=== PATIENT | male | born 1985 | race Caucasian/White ===

== ENCOUNTER 2025-04-29 20:50 | Emergency (ER) | payer OTHER ==
[2025-04-29 21:08] VITALS: RESP 18; TEMP 98.1
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
[2025-04-29] MEDS: KETOROLAC 15 MG/ML 1 ML VIAL IM STA (21:42)
[2025-04-29] MEDS: HYDROmorphone 1 MG/ML 1 ML SYRINGE IM STA (21:43)
[2025-04-29] MEDS: ONDANSETRON ODT 4 MG TAB PO STA (23:18)
--- NOTE | 2025-04-29 23:42 | XR ---
EXAM: XR Lumbosacral Spine, 2 or 3 Views CLINICAL HISTORY: ITS.REASON XR Reason: pain TECHNIQUE: Frontal and lateral views of the lumbar spine and sacrum. COMPARISON: No relevant prior studies available. FINDINGS: Vertebrae: 30% L1 compression fracture, age-indeterminate. Vertebral body heights otherwise maintained. Vertebral body alignment is normal. Sacrum/coccyx: Unremarkable as visualized. No acute fracture. Disc spaces: No acute findings. No significant narrowing. Soft tissues: Unremarkable. IMPRESSION: 30% L1 compression fracture, age-indeterminate.
--- NOTE | 2025-04-29 23:43 | XR ---
EXAM: XR Pelvis, 1 or 2 Views CLINICAL HISTORY: ITS.REASON XR Reason: pain TECHNIQUE: Frontal view of the pelvis. COMPARISON: No relevant prior studies available. FINDINGS: Bones/joints: No acute fracture. No dislocation. Soft tissues: Unremarkable. IMPRESSION: No acute osseous findings.
[2025-04-30] MEDS: ACET/COD 300 MG/30 MG STARTER PACK 6 TAB BTL PO STA (00:06)
[2025-04-30 00:11] VITALS: BP 126/77; PULSE 62
== END 2025-04-30 00:11 | disposition home or self-care (01) ==
LOC: EC 20:50
DX: S32.010A Wedge compression fracture of first lumbar vertebra, initial encounter for closed fracture (principal); F17.290 Nicotine dependence, other tobacco product, uncomplicated; V86.95XA Unspecified occupant of 3- or 4- wheeled all-terrain vehicle (ATV) injured in nontraffic accident, initial encounter; Y92.009 Unspecified place in unspecified non-institutional (private) residence as the place of occurrence of the external cause
CPT/HCPCS: 72100; 72170; 99283; 96372 ×2; J1171; J1885